=== PATIENT | male | born 1990 | race African-American/Black ===

== ENCOUNTER → 2018-03-14 | Day surgery (SDC) | payer OTHER ==
[~2018-03-14] VITALS: Ht 172.7 cm; Wt 99.8 kg
--- NOTE | 2018-03-14 08:44 | History & Physical Pre-Op ---
General Information and HPI History of Present Illness: Boris is a 19-year-old male with a long-standing and worsening complaint of a painful bunion right foot. The patient has undergone an extended course of conservative care, including shoe gear and activity modification, rest, immobilization and courses of NSAIDs. None of this is yielded him any significant relief. The patient presents today for preoperative surgical consultation. Allergies/Medications Allergies: Coded Allergies: No Known Allergies (03/13/18) Home Med list No Known Home Medications Past History Surgical History Pertinent Surgical History: non-contributory Review of Systems Review of Systems: Unremarkable except for that noted in history of present illness Exam & Diagnostic Data Physical Exam: Lungs clear bilaterally. Heart sounds rate and rhythm regular. Lower extremity physical exam demonstrates intact pedal pulses bilaterally. Pulses dorsalis pedis and posterior tibial arteries are palpable bilaterally. Patient without any sensory motor deficits. Deep tendon reflexes grossly intact. Patient noted to have significant pain with palpation range of motion to the right first metatarsophalangeal joint. The hallux is noted to be tracking in track bound. Assessment/Plan Assessment/Plan: Painful bunion right foot. A lengthy discussion reviewing both surgical and conservative options was held the patient at bedside and the patient elected to go forward with surgery despite the risks. As Ranked By This Provider Problem List: 1. Acquired hallux valgus of right foot Attending MD Review Statement Attending Statement Attending MD Statement: examined this patient
--- NOTE | 2018-03-14 16:03 | Operative Report ---
Operative/Inv Procedure Report Surgery Date: 03/11/18 Name of Procedure: 1 bunionectomy right foot Pre-Operative Diagnosis: 1 hallux valgus right foot Post-Operative Diagnosis: The same Estimated Blood Loss: scant Surgeon/Rn Discharge: Jono Estrella DPM Anesthesia: moderate sedation, block Operative/Procedure Note Note: After obtaining informed consent the patient was brought to the operating room and placed on the operating table in the supine position. The patient was then securely fastened to the operating table utilizing safety belt. After administration of IV sedation, 10 mL of 0.5% Marcaine plain was infiltrated about the patient's right ankle. A well-padded ankle tourniquet was placed about the patient's right lower extremity. 2 g of Ancef were delivered intravenously times one dose. The right foot and ankle within scrubbed, prepped and draped in usual aseptic manner. Right lower extremity was elevated to examine to limb, which point the ankle tourniquet inflated to 250 mmHg. Attention was directed to the dorsal aspect of the right foot, where a 6 cm linear incision was made just medial to course of the extensor listless longus tendon. Dissection was then carried down to subtenons tissues. All vital neurovascular structures were identified protected. An inverted L capsulotomy was then performed exposing the medial eminence. This was then removed sagittal bone saw. Attention was directed the first interspace, where a lateral release was performed with resection of the fibular suspensory ligament and the oblique head of the abductor hallucis tendon. The extensive list of his tendon was identified and tenotomized. A Chevron type osteotomy was then performed and the capital fragment was transposed laterally. It was then impacted upon the metatarsal shelf. It was then fixated utilizing standard AO fixation techniques. The medial shelf was then revised irrigated Cossman is normal sterile saline. The capture structures reapproximated 3-0 Vicryl. The subtenons tissues report with 4-0 Vicryl and the skin edges reapproximated 4-0 Monocryl. Incision dressed with Steri-Strips Xeroform, 4 x 4's, Kerlix and an Sacha wrap. The patient was noted to tolerate both procedure and anesthesia well and the patient was transported from the operating room to recovery with vital signs stable best assess intact to all digits right foot.
== END ==
LOC: STS 03:19
DX: M20.11 Hallux valgus (acquired), right foot (principal)
CPT/HCPCS: J0690; J1100; J2001; J2250; J2405